=== PATIENT | female | born 1975 | race Caucasian/White ===

== ENCOUNTER 2016-10-11 14:00 | Emergency (ER) | payer MEDICAID, OTHER ==
[2016-10-11 14:16] VITALS: BP 139/86; TEMP 98
--- NOTE | 2016-10-11 14:47 | C.PDOC ---
History Of Present Illness 41 y/o female c/o cough with yellow green sputum, sore throat, ear pain and left side chest wall pain wiht cough x 1 week. no fever or chills. possible sick contact at work. pt feels sob with cough. Time Seen by Provider: 10/11/16 14:33 Chief Complaint (Nursing): Cough, Cold, Congestion History Per: Patient History/Exam Limitations: no limitations Onset/Duration Of Symptoms: Days (7) Current Symptoms Are (Timing): Still Present Location Of Pain: Ear(s), Throat Sick Contacts (Context): Individual(s) At Work Associated Symptoms: Sore Throat, Cough, Sputum, Nasal Congestion. denies: Fever, Chills, Nausea, Vomiting, Diarrhea Ear Symptoms: Bilateral: None Past Medical History Reviewed: Historical Data, Nursing Documentation, Vital Signs Vital Signs: Last Vital Signs Temp 98 F 10/11/16 14:14 Pulse 89 10/11/16 14:14 Resp 16 10/11/16 14:14 BP 139/86 10/11/16 14:14 Pulse Ox 98 10/11/16 16:55 - Medical History PMH: No Chronic Diseases Surgical History: No Surg Hx Family History: States: Unknown Family Hx - Social History Hx Tobacco Use: Yes Hx Alcohol Use: No Hx Substance Use: No - Immunization History Hx Influenza Vaccination: No Review Of Systems Constitutional: Negative for: Fever, Chills ENT: Positive for: Ear Pain, Throat Pain Cardiovascular: Positive for: Chest Pain (left chest wall axillary area) Respiratory: Positive for: Cough, Shortness of Breath, SOB with Excertion, Sputum. Negative for: Hemoptysis Gastrointestinal: Negative for: Nausea, Vomiting, Abdominal Pain, Diarrhea Genitourinary: Negative for: Dysuria, Frequency Skin: Negative for: Rash Neurological: Negative for: Weakness, Numbness Physical Exam - Physical Exam Appears: Non-toxic, No Acute Distress Skin: Normal Color, Warm, Dry Head: Atraumatic, Normacephalic Eye(s): bilateral: Normal Inspection Ear(s): Bilateral: Normal Nose: Normal Oral Mucosa: Moist Tongue: Normal Appearing Lips: Normal Appearing Throat: Erythema (mild , no tonsillar enlargement), No Exudate Neck: Normal ROM, Supple Chest: Symmetrical, No Deformity Cardiovascular: Rhythm Regular, No Murmur Respiratory: Rhonchi (scattered at bases) Gastrointestinal/Abdominal: Soft, No Tenderness Neurological/Psych: Oriented x3, Normal Speech, Normal Cognition, Normal Motor, Normal Sensation ED Course And Treatment O2 Sat by Pulse Oximetry: 98 - Other Rad CXR X-Ray: Viewed By Me, Read By Radiologist Interpretation: HISTORY: cough yellow sputum. COMPARISON: No prior. TECHNIQUE: Chest PA and lateral. FINDINGS: LUNGS: No focal airspace opacity. PLEURA: No significant pleural effusion identified. No pneumothorax apparent.Biapical pleural parenchymal thickening noted. CARDIOVASCULAR: Normal. OSSEOUS STRUCTURES: No significant abnormalities. VISUALIZED UPPER ABDOMEN: Normal. OTHER FINDINGS: None. IMPRESSION: No focal airspace opacity. Disposition Counseled Patient/Family Regarding: Diagnosis, Need For Followup - Disposition Referrals: [facility] at [facility] [Outside] Disposition: HOME/ ROUTINE Disposition Time: 16:53 Additional Instructions: Drink a lot of fluids. Avoid diary for a few days. Take Mucinex to help with cough. FOllow up with your doctor in a few days. Return to ER for any worsening sympotms. Instructions: Upper Respiratory Infection (ED) Forms: Work Excuse - Clinical Impression Clinical Impression: Upper respiratory infection
--- NOTE | 2016-10-11 16:35 | RAD ---
HISTORY: cough yellow sputum COMPARISON: No prior. TECHNIQUE: Chest PA and lateral FINDINGS: LUNGS: No focal airspace opacity. PLEURA: No significant pleural effusion identified. No pneumothorax apparent.Biapical pleural parenchymal thickening noted. CARDIOVASCULAR: Normal. OSSEOUS STRUCTURES: No significant abnormalities. VISUALIZED UPPER ABDOMEN: Normal. OTHER FINDINGS: None. IMPRESSION: No focal airspace opacity.
[2016-10-11 17:09] VITALS: PULSE 90; RESP 18; O2SAT 99
== END 2016-10-11 17:09 | disposition home or self-care (01) ==
LOC: C.ER 14:00
DX: J06.9 Acute upper respiratory infection, unspecified (principal); Z72.0 Tobacco use

== ENCOUNTER 2017-07-25 12:39 | Emergency (ER) | payer OTHER ==
[2017-07-25 13:00] VITALS: BMI 28.1
[2017-07-25 13:02] VITALS: BP 145/94; PULSE 90; RESP 18; TEMP 99.4; O2SAT 98
[2017-07-25] MEDS ORDERED: Lidocaine 1% w Epi 1:100,000 Inj INJ ONE (13:14)
[2017-07-25] MEDS ORDERED: Naproxen 550 mg Tab PO STA (13:14)
[2017-07-25] MEDS ORDERED: Lidocaine 2% w Epi 1:100,000 Inj IJ ONE (13:21)
[2017-07-25] MEDS ORDERED: Naproxen 550 mg Tab PO ONE (13:21)
--- NOTE | 2017-07-25 13:38 | C.PDOC ---
History Of Present Illness 42 yo female c/o cyst on her chest. She notes she has had it was about a year, but in the the last two weeks it has become larger and red. Denies fever, drainage, sob, or associated symptoms. Time Seen by Provider: 07/25/17 13:04 Chief Complaint (Nursing): Abnormal Skin Integrity History Per: Patient History/Exam Limitations: no limitations Onset/Duration Of Symptoms: Days Past Medical History Vital Signs: Last Vital Signs Temp 99.4 F 07/25/17 13:00 Pulse 90 07/25/17 13:00 Resp 18 07/25/17 13:43 BP 145/94 H 07/25/17 13:00 Pulse Ox 98 07/25/17 13:38 Family History: States: Unknown Family Hx - Social History Hx Tobacco Use: Yes Hx Alcohol Use: No Hx Substance Use: No - Immunization History Hx Influenza Vaccination: No Review Of Systems Except As Marked, All Systems Reviewed And Found Negative. Physical Exam - Physical Exam Appears: Well, No Acute Distress Skin: Warm, Dry, Other ((+) 3 cm area of erythema, swelling and central fluctuancejust left of the midline on the chest wall) Head: Atraumatic, Normacephalic Eye(s): bilateral: Normal Inspection, EOMI Nose: Normal Oral Mucosa: Moist Neck: Normal, Normal ROM, Supple Chest: Symmetrical Cardiovascular: Rhythm Regular Respiratory: Normal Breath Sounds Back: Normal Inspection Extremity: Normal ROM Neurological/Psych: Oriented x3, Normal Speech ED Course And Treatment O2 Sat by Pulse Oximetry: 98 Progress Note: Discussed with pt possible complications with incision, pt agrees for I&D, consent signed. Discussed wound care and wound check in 2 days. - Incision & Drainage Of Abscess Anesthesia: Lidocaine 1%, With Epi Prep Used: Sterile Water, Betadine Procedure: Incised W/Scalpel Blade#: (11), Drained Pus, Irrigated Cavity W/ Saline, Probed To Break Up Loculations, Packed W/Gauze, Cultures Obtained And Sent To Lab Disposition - Disposition Disposition: HOME/ ROUTINE Disposition Time: 13:36 Condition: STABLE Additional Instructions: Wound check in 2 days. Return to ER if symptoms persist or worsen. Prescriptions: Sulfamethoxazole/Trimethoprim [Bactrim DS 800 mg-160 mg] 1 tab PO BID #14 tab Instructions: Abscess Incision and Drainage (ED) Forms: [facility] (Croatian) - Clinical Impression Clinical Impression: Incisional abscess
== END 2017-07-25 13:44 | disposition home or self-care (01) ==
LOC: C.ER 12:39
DX: L02.213 Cutaneous abscess of chest wall (principal)

== ENCOUNTER 2017-07-27 10:37 | Emergency (ER) | payer OTHER ==
[2017-07-27 10:38] VITALS: BMI 28.1
[2017-07-27 10:51] VITALS: BP 134/85; PULSE 91; RESP 20; TEMP 99.9; O2SAT 98
--- NOTE | 2017-07-27 11:09 | C.PDOC ---
History Of Present Illness 42 year old female presents to the ER for a wound check. Patient reports that she had an I&D in the chest two days ago [facility] ED and she is here for packing removal today. She reports that she is taking antibiotics. She denies having a fever or any other medical complaints. Time Seen by Provider: 07/27/17 11:03 Chief Complaint (Nursing): Wound Check History Per: Patient History/Exam Limitations: no limitations Onset/Duration Of Symptoms: Hrs Current Symptoms Are (Timing): Still Present Past Medical History Reviewed: Historical Data, Nursing Documentation, Vital Signs Vital Signs: Last Vital Signs Temp 99.9 F H 07/27/17 10:45 Pulse 91 H 07/27/17 10:45 Resp 20 07/27/17 10:45 BP 134/85 07/27/17 10:45 Pulse Ox 98 07/27/17 12:04 - Medical History PMH: No Chronic Diseases Surgical History: No Surg Hx Family History: States: No Known Family Hx - Social History Hx Tobacco Use: Yes Hx Alcohol Use: No Hx Substance Use: No - Immunization History Hx Influenza Vaccination: No Review Of Systems Except As Marked, All Systems Reviewed And Found Negative. Constitutional: Negative for: Fever, Chills Cardiovascular: Negative for: Chest Pain Respiratory: Negative for: Cough Gastrointestinal: Negative for: Abdominal Pain Neurological: Negative for: Weakness, Numbness, Headache, Dizziness Physical Exam - Physical Exam Appears: Non-toxic, No Acute Distress Skin: Normal Color, Warm Head: Atraumatic, Normacephalic Eye(s): bilateral: Normal Inspection, EOMI Nose: Normal Oral Mucosa: Moist Neck: Normal ROM, Supple Chest: Other (incisional wound to the mid chest wall with packing in place, no swelling and erythema) Cardiovascular: Rhythm Regular Respiratory: Normal Breath Sounds, No Accessory Muscle Use Extremity: Normal ROM Neurological/Psych: Oriented x3, Normal Speech, Normal Motor, Normal Sensation Gait: Steady ED Course And Treatment O2 Sat by Pulse Oximetry: 98 (RA) Pulse Ox Interpretation: Normal Medical Decision Making Medical Decision Making: Impression: Encounter for Packing & Removal Progress: Packing removed without difficulty. Wound was irrigated with saline and new dressing was applied. There was no more purulent discharge. Dressing was applied. Disposition Counseled Patient/Family Regarding: Diagnosis, Need For Followup - Disposition Disposition: HOME/ ROUTINE Disposition Time: 11:08 Condition: GOOD Instructions: Acute Wound Care (ED) Forms: [facility] (Yoruba) - POA Present On Arrival: None - Clinical Impression Clinical Impression: Abscess packing removal - PA / DIRECTOR CORPORATE COMPLIANCE / Resident Statement MD/DO has reviewed & agrees with the documentation as recorded. - Scribe Statement The provider has reviewed the documentation as recorded by the Scribe Pérez Guillen All medical record entries made by the Scribe were at my direction and personally dictated by me. I have reviewed the chart and agree that the record accurately reflects my personal performance of the history, physical exam, medical decision making, and the department course for this patient. I have also personally directed, reviewed, and agree with the discharge instructions and disposition.
== END 2017-07-27 11:18 | disposition home or self-care (01) ==
LOC: C.ER 10:37
DX: Z48.00 Encounter for change or removal of nonsurgical wound dressing (principal)

== ENCOUNTER 2017-12-06 08:40 | Emergency (ER) | payer OTHER ==
[2017-12-06 08:47] VITALS: BMI 29.7
[2017-12-06 08:51] VITALS: RESP 18
--- NOTE | 2017-12-06 09:50 | RAD ---
HISTORY: Cough COMPARISON: Comparison chest 10/11/2026 TECHNIQUE: Chest PA and lateral FINDINGS: LUNGS: No active pulmonary disease. Minor biapical pleural thickening PLEURA: As above. No significant pleural effusion identified. No pneumothorax apparent. CARDIOVASCULAR: Normal. OSSEOUS STRUCTURES: Minor multilevel degenerative spondylosis of the thoracic spine VISUALIZED UPPER ABDOMEN: Normal. OTHER FINDINGS: None. IMPRESSION: No active disease.
[2017-12-06] MEDS ORDERED: Albuterol 0.083% Inhal Sol (2.5 mg/3 mL) UD INH STA (10:15)
--- NOTE | 2017-12-06 10:32 | C.PDOC ---
History Of Present Illness 42 y/o female presents to the ED complaining of bodyaches, sore throat, cough, and vomiting since yesterday. Cough is productive of yellow phlegm. She denies any abdominal pain, dysuria, vaginal bleeding, or discharge. + tobacco use. Time Seen by Provider: 12/06/17 09:06 Chief Complaint (Nursing): Cough, Cold, Congestion History Per: Patient History/Exam Limitations: no limitations Onset/Duration Of Symptoms: Days Current Symptoms Are (Timing): Still Present Past Medical History Reviewed: Historical Data, Nursing Documentation, Vital Signs Vital Signs: Last Vital Signs Temp 98.8 F 12/06/17 11:37 Pulse 88 12/06/17 11:37 Resp 18 12/06/17 11:37 BP 122/81 12/06/17 11:37 Pulse Ox 99 12/06/17 11:56 Surgical History: Family History: States: Unknown Family Hx - Social History Hx Tobacco Use: Yes Hx Alcohol Use: Yes Hx Substance Use: No - Immunization History Hx Tetanus Toxoid Vaccination: No Hx Influenza Vaccination: No Hx Pneumococcal Vaccination: No Review Of Systems Except As Marked, All Systems Reviewed And Found Negative. Constitutional: Positive for: Other (bodyaches) ENT: Positive for: Throat Pain Respiratory: Positive for: Cough Gastrointestinal: Positive for: Vomiting Physical Exam - Physical Exam Appears: Non-toxic, No Acute Distress Skin: Normal Color, Warm, Dry Head: Atraumatic, Normacephalic Eye(s): bilateral: Normal Inspection, PERRL, EOMI Nose: Normal Oral Mucosa: Moist Throat: Normal, No Erythema, No Exudate Neck: Normal ROM, Supple Chest: Symmetrical Cardiovascular: Rhythm Regular, No Murmur Respiratory: No Rales, No Rhonchi, Wheezing (expiratory wheezing bilaterally), No Other (respiratory distress) Extremity: Bilateral: Atraumatic, No Pedal Edema, Normal Color And Temperature Neurological/Psych: Oriented x3, Normal Speech ED Course And Treatment - Laboratory Results Result Diagrams: 12/06/17 11:00 12/06/17 11:00 O2 Sat by Pulse Oximetry: 99 (RA) Pulse Ox Interpretation: Normal Medical Decision Making Medical Decision Making: Impression: Vomiting, Bronchitis Patient initially given albuterol nebulizer treatment and Zithro but began vomiting in the ED. Labs ordered. Plan: --Blood work --Urinalysis --Chest X-ray --Protonix 40 mg IVP --Zofran 4 mg IVP --Toradol 30 mg IVP --Reassessment During observation, patient vomited. Labs ordered and reviewed. Patient tolerated po's. Patient discharged home to follow up with pmd in 2 days. Disposition Counseled Patient/Family Regarding: Studies Performed, Diagnosis, Need For Followup, Rx Given - Disposition Referrals: [facility] at [facility] [Outside] Disposition: HOME/ ROUTINE Disposition Time: 11:45 Condition: STABLE Additional Instructions: follow up with your doctor in 2 days call to make an appointment take medications as prescribed return to ER if symptoms worsens or progress Prescriptions: Albuterol HFA [Ventolin HFA 90 mcg/actuation (8 g)] 2 puff IH [id number] #1 puff Azithromycin [Zithromax] 250 mg PO DAILY #4 tab Benzonatate [Tessalon Perles] 100 mg PO BID PRN #14 tab PRN Reason: Cough Naproxen [Naprosyn] 500 mg PO BID PRN #16 tab PRN Reason: Pain, Moderate (4-7) Ondansetron ODT [Zofran ODT] 4 mg PO TID PRN #12 odt PRN Reason: Nausea/Vomiting Instructions: Acute Bronchitis, Nausea and Vomiting, Adult (DC) Forms: General Discharge Instructions, [facility] (French), Work Excuse - POA Present On Arrival: None - Clinical Impression Clinical Impression: Bronchitis, Vomiting - Scribe Statement The provider has reviewed the documentation as recorded by the Scribe (Miladis Guallpa) Provider Attestation: All medical record entries made by the Scribe were at my direction and personally dictated by me. I have reviewed the chart and agree that the record accurately reflects my personal performance of the history, physical exam, medical decision making, and the department course for this patient. I have also personally directed, reviewed, and agree with the discharge instructions and disposition.
[2017-12-06] MEDS ORDERED: Albuterol 0.083% Inhal Sol (2.5 mg/3 mL) UD ONE ×2 (10:37→10:41)
[2017-12-06 11:06] LABS: BASO # 0.1 K/uL (0.0-0.2); BASO % 0.7 % (0.0-2.0); EOS % 0.3 % (0.0-4.0); HEMOGLOBIN 13.6 g/dL (11.0-16.0); LYMPH # 0.9 K/uL (1.0-4.3); LYMPH % 11.1 % (20.0-40.0); MEAN CELL VOLUME 88.3 fL (81.0-99.0); MEAN CORPUSCULAR HEMOGLOBIN 29.8 pg (27.0-31.0); MEAN CORPUSCULAR HGB CONC 33.7 g/dL (33.0-37.0); MONO # 0.5 K/uL (0.0-0.8); MONO % 5.6 % (0.0-10.0); NEUT % 82.3 % (50.0-75.0); RBC 4.56 Mil/uL (3.80-5.20); RED CELL DISTRIBUTION WIDTH 12.8 % (11.5-14.5); WHITE BLOOD COUNT 8.4 K/uL (4.8-10.8)
[2017-12-06 11:16] LABS: SQUAMOUS EPITHIAL 23 /hpf (0-5); URINE BACTERIA RARE (<OCC); URINE BILIRUBIN NEGATIVE (NEGATIVE); URINE BLOOD NEGATIVE (NEGATIVE); URINE CLARITY Hazy (Clear); URINE COLOR Yellow (YELLOW); URINE GLUCOSE (UA) NORMAL (Normal); URINE LEUKOCYTE ESTERASE NEG Leu/uL (Negative); URINE PROTEIN NEGATIVE (NEGATIVE); URINE UROBILINOGEN NORMAL mg/dL (0.2-1.0)
[2017-12-06 11:20] LABS: ALB/GLOB RATIO 1.5 (1.0-2.1); ALBUMIN 4.4 g/dL (3.5-5.0); ALT/SGPT 74 U/L (9-52); AST/SGOT 62 U/L (14-36); BLOOD UREA NITROGEN 9 mg/dL (7-17); CALCIUM 9.2 mg/dl (8.6-10.4); GFR AFRICAN-AMERICAN > 60; GFR NON-AFRICAN AMERICAN > 60; LIPASE 97 U/L (23-300)
[2017-12-06 11:37] VITALS: BP 122/81; PULSE 88; TEMP 98.8
[2017-12-06 11:47] VITALS: O2SAT 99
== END 2017-12-06 11:40 | disposition home or self-care (01) ==
LOC: C.ER 08:40
DX: J40 Bronchitis, not specified as acute or chronic (principal); R11.10 Vomiting, unspecified; F17.210 Nicotine dependence, cigarettes, uncomplicated
CPT/HCPCS: 71046; 80053; 81001; 83690; 85025; 94640; 96374; 96375; 99284; C9113; J1885; J2405

== ENCOUNTER 2018-08-11 10:17 | Emergency (ER) | payer OTHER ==
[2018-08-11 10:17] VITALS: BMI 29.7
[2018-08-11 10:31] VITALS: RESP 18
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
[2018-08-11 11:51] VITALS: BP 142/90
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
[2018-08-11 12:11] VITALS: PULSE 88; TEMP 98; O2SAT 100
== END 2018-08-11 12:10 | disposition home or self-care (01) ==
LOC: C.ER 10:17
DX: S90.01XA Contusion of right ankle, initial encounter (principal); S80.02XA Contusion of left knee, initial encounter; S80.01XA Contusion of right knee, initial encounter; V49.59XA Passenger injured in collision with other motor vehicles in traffic accident, initial encounter; W22.10XA Striking against or struck by unspecified automobile airbag, initial encounter; Y92.410 Unspecified street and highway as the place of occurrence of the external cause